=== PATIENT | male | born 1940 | race Caucasian/White ===

== ENCOUNTER 2025-06-14 11:16 | Observation (INO) ==
[2025-06-14 12:07] LABS: Basophils # (Auto) 0.01 K/mcL (0.00-0.30); Basophils % (Auto) 0.3 % (0.0-2.0); Eosinophils # (Auto) 0.04 K/mcL (0.00-0.70); Eosinophils % (Auto) 1.2 % (0.0-7.0); Hematocrit 40.3 % (40.1-51.0); Hemoglobin 13.2 g/dL (13.7-17.5); Lymphocytes # (Auto) 1.19 K/mcL (1.50-4.80); Lymphocytes % (Auto) 34.4 % (15.5-49.0); Mean Corpuscular HGB Conc 32.8 g/dL (31.0-36.0); Monocytes # (Auto) 0.61 K/mcL (0.10-0.90); Monocytes % (Auto) 17.6 % (1.0-12.0); Neutrophils % (Auto) 46.2 % (38.0-78.0); Platelet Count 130 K/mcL (140-440); RBC 4.06 M/mcL (4.63-6.08); WBC 3.5 K/mcL (4.5-11.0)
[2025-06-14 12:25] LABS: ALT/SGPT 7 U/L (<40); AST/SGOT 27 U/L (<40); Albumin 3.9 gm/dL (3.2-5.2); Albumin/Globulin Ratio 1.8 (1.0-2.3); Alkaline Phosphatase 70 U/L (39-117); Anion Gap 12.0 (8.0-16.0); Bilirubin,Total 0.4 mg/dL (0.1-1.0); Blood Urea Nitrogen 17 mg/dL (8-23); Calcium 9.0 mg/dL (8.6-10.4); Carbon Dioxide 21 mmol/L (22-30); Chloride 105 mmol/L (96-108); Globulin 2.2 gm/dL (2.2-3.7); Glucose 93 mg/dL (70-105); Potassium 4.2 mmol/L (3.3-5.1); Sodium 138 mmol/L (133-145)
[2025-06-14] MEDS ORDERED: ONDANSETRON 4 MG/2 ML VIAL IV PRN (17:43)
[2025-06-14] MEDS ORDERED: ACETAMINOPHEN 325 MG TABLET PO PRN (17:43)
[2025-06-14] MEDS: SENNOSIDES 1 TABLET PO SCH (21:06)
[2025-06-14] MEDS: 0.9 % SODIUM CHLORIDE 10 ML SYRINGE IV SCH (21:06)
[2025-06-14] MEDS: CARBIDOPA/LEVODOPA 25/100 TABLET PO SCH (21:06)
[2025-06-14] MEDS: GABAPENTIN 400 MG CAPSULE PO ONE (21:10)
[2025-06-15 06:11] LABS: Anion Gap 11.0 (8.0-16.0); Blood Urea Nitrogen 14 mg/dL (8-23); Calcium 9.2 mg/dL (8.6-10.4); Carbon Dioxide 25 mmol/L (22-30); Chloride 105 mmol/L (96-108); Glucose 117 mg/dL (70-105); Potassium 4.0 mmol/L (3.3-5.1); Sodium 141 mmol/L (133-145)
[2025-06-15 06:28] LABS: Basophils # (Auto) 0.01 K/mcL (0.00-0.30); Basophils % (Auto) 0.3 % (0.0-2.0); Eosinophils # (Auto) 0.07 K/mcL (0.00-0.70); Eosinophils % (Auto) 2.1 % (0.0-7.0); Hematocrit 41.5 % (40.1-51.0); Hemoglobin 13.8 g/dL (13.7-17.5); Lymphocytes # (Auto) 1.37 K/mcL (1.50-4.80); Lymphocytes % (Auto) 41.1 % (15.5-49.0); Mean Corpuscular HGB Conc 33.3 g/dL (31.0-36.0); Monocytes # (Auto) 0.51 K/mcL (0.10-0.90); Monocytes % (Auto) 15.3 % (1.0-12.0); Neutrophils % (Auto) 40.9 % (38.0-78.0); Platelet Count 129 K/mcL (140-440); RBC 4.30 M/mcL (4.63-6.08); WBC 3.3 K/mcL (4.5-11.0)
[2025-06-15] MEDS: CARBIDOPA/LEVODOPA 25/100 TABLET PO SCH (07:06)
[2025-06-15] MEDS: DONEPEZIL 10 MG TABLET PO SCH (09:06)
[2025-06-15] MEDS: TAMSULOSIN 0.4 MG CAPSULE PO SCH (09:06)
[2025-06-15] MEDS: DESVENLAFAXINE SUCCINATE 100 MG PO SCH (09:07)
[2025-06-15] MEDS: PRAMIPEXOLE 0.25 MG TABLET PO SCH (16:12)
[2025-06-15] MEDS: GABAPENTIN 400 MG CAPSULE PO SCH (20:21)
[2025-06-16] MEDS: MIDODRINE 5 MG TABLET PO ONE (10:05)
[2025-06-16 11:04] VITALS: O2SAT 100
[2025-06-16 15:24] VITALS: TEMP 97.3
== END 2025-06-16 16:12 | disposition home health service (06) ==
LOC: ED 11:16 → MEDSUR 11:16
PROVIDERS: ADMIT Internal Medicine; ATTEND Internal Medicine